=== PATIENT | male | born 2000 | race Caucasian/White ===

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

== ENCOUNTER → 2022-03-20 | Outpatient (CLI) | payer BC ==
--- NOTE | 2022-03-20 20:08 | XR ---
Number EXAMINATION TYPE: XR chest 2V DATE OF EXAM: 03/20/2022 COMPARISON: 02/10/2004 HISTORY: Chest pain TECHNIQUE: Frontal and lateral views of the chest are obtained. FINDINGS: There is no focal air space opacity. No evidence for pneumothorax. No pleural effusion. The cardiac silhouette size is within normal limits. The osseous structures are grossly intact. IMPRESSION: 1. No acute cardiopulmonary process.
== END | disposition home or self-care (01) ==
LOC: RADXRMAIN 16:47
PROVIDERS: ATTEND Family Medicine
DX: R06.00 Dyspnea, unspecified (principal)
CPT/HCPCS: 71046

== ENCOUNTER 2023-06-29 14:13 | Emergency (ER) | payer BC ==
--- NOTE | 2023-06-29 14:27 | ED ---
Nausea/Vomiting/Diarrhea HPI - General Source: patient, family, RN notes reviewed Mode of arrival: ambulatory Limitations: no limitations - History of Present Illness MD complaint: nausea, vomiting <Shraddha Roth - Last Filed: 06/29/23 14:23> <Ying Savage - Last Filed: 06/29/23 16:57> - General Chief complaint: Nausea/Vomiting/Diarrhea Stated complaint: covid symptoms Time Seen by Provider: 06/29/23 14:23 - History of Present Illness Initial comments: This is a 23 year old male who presents to the emergency department for nausea, vomiting, body aches, and coughing. Sx started 3 days ago. He is unable to keep anything down or control the coughing. 2 other people in his home tested positive for COVID, however he had a negative home test. (Shraddha Roth) 23-year-old male presenting with chief complaint of nausea and vomiting. Patient states symptoms have been ongoing for the last 3 days. He also admits to body aches and cough, which started on Friday. States that 2 other people in his home have had similar symptoms in tested positive for Covid. He is concerned because he is unable to keep anything down secondary to the vomiting. No shortness of breath, abdominal pain, fever, chills. (Ying Savage) - Related Data Previous Rx's Medication Instructions Recorded Amoxicillin 875 mg PO Q12HR #20 tablet 12/11/19 Ekxoadrc-Mxnccoqww-Yn Otic 2 drops BOTH EARS TID #1 bottle 12/11/19 [Cortisporin Otic Soln] Ondansetron Odt [Zofran Odt] 4 mg PO Q8HR PRN #20 tab 06/29/23 Allergies Allergy/AdvReac Type Severity Reaction Status Date / Time No Known Allergies Allergy Verified 11/24/22 16:09 Review of Systems ROS Other: All systems not noted in ROS Statement are negative. <Shraddha Roth - Last Filed: 06/29/23 14:23> ROS Other: All systems not noted in ROS Statement are negative. <Ying Savage - Last Filed: 06/29/23 16:57> ROS Statement: Those systems with pertinent positive or pertinent negative responses have been documented in the HPI. Past Medical History Past Medical History: No Reported History History of Any Multi-Drug Resistant Organisms: None Reported Past Surgical History: No Surgical Hx Reported Past Psychological History: Anxiety Smoking Status: Vaper Past Alcohol Use History: None Reported Past Drug Use History: None Reported <Shraddha Roth - Last Filed: 06/29/23 14:23> General Exam <Shraddha Roth - Last Filed: 06/29/23 14:23> Limitations: no limitations General appearance: alert, in no apparent distress Head exam: Present: atraumatic, normocephalic, normal inspection Eye exam: Present: normal appearance, EOMI ENT exam: Present: normal oropharynx, mucous membranes moist Neck exam: Present: normal inspection, full ROM Respiratory exam: Present: normal lung sounds bilaterally. Absent: respiratory distress, wheezes, rales, rhonchi, stridor Cardiovascular Exam: Present: regular rate, normal rhythm, normal heart sounds. Absent: systolic murmur, diastolic murmur, rubs, gallop, clicks Neurological exam: Present: alert, oriented X3 Psychiatric exam: Present: normal affect, normal mood Skin exam: Present: warm, dry, intact <Ying Savage - Last Filed: 06/29/23 16:57> - General Exam Comments Initial Comments: Visual Physical Exam Vital signs reviewed General: Well-appearing, nontoxic, no acute distress. Head: Normocephalic, atraumatic Eyes: PERRLA, EOMI ENT: Airway patent Chest: Nonlabored breathing Skin: No visual rash, normal skin tone Neuro: Alert and oriented 3 Musculoskeletal: No gross abnormalities I performed the QuickNote portion of this chart. Signed Shraddha Roth PA-C. (Shraddha Roth) Course Vital Signs 06/29/23 14:24 Temperature 98.5 F Pulse Rate 89 Respiratory 16 Rate Blood Pressure 156/100 O2 Sat by Pulse 96 Oximetry Medical Decision Making - Lab Data Result diagrams: 06/29/23 14:30 06/29/23 14:30 <Ying Savage - Last Filed: 06/29/23 16:57> - Medical Decision Making Was pt. sent in by a medical professional or institution (, [facility], [facility], urgent care, hospital, or care home...) When possible be specific @ -No Did you speak to anyone other than the patient for history (EMS, parent, family, police, friend...)? What history was obtained from this source @ -No Did you review nursing and triage notes (agree or disagree)? Why? @ -I reviewed and agree with nursing and triage notes Were old charts reviewed (outside hosp., previous admission, EMS record, old EKG, old radiological studies, urgent care reports/EKG's, care home records)? Report findings @ -No old charts were reviewed Differential Diagnosis (chest pain, altered mental status, abdominal pain women, abdominal pain men, vaginal bleeding, weakness, fever, dyspnea, syncope, heada margie, dizziness, GI bleed, back pain, seizure, CVA, palpatations, mental health, musculoskeletal)? @ -Differential includes gastroenteritis, Covid, pneumonia, this is not an all inclusive list EKG interpreted by me (3pts min.). @ -As above X-rays interpreted by me (1pt min.). @ -Chest x-ray negative for acute process CT interpreted by me (1pt min.). @ -None done U/S interpreted by me (1pt. min.). @ -None done What testing was considered but not performed or refused? (CT, X-rays, U/S, labs)? Why? @ -None What meds were considered but not given or refused? Why? @ -None Did you discuss the management of the patient with other professionals (professionals i.e. , PA, B[facility], lab, RT, psych nurse, social worker health services, vocational rehabilitation specialist, teacher, procurement officer, housing case manager)? Give summary @ -No Was smoking cessation discussed for >3mins.? @ -No Was critical care preformed (if so, how long)? @ -No Were there social determinants of health that impacted care today? How? (Homelessness, low income, unemployed, alcoholism, drug addiction, transportation, low edu. Level, literacy, decrease access to med. care, custodial, rehab)? @ -No Was there de-escalation of care discussed even if they declined (Discuss DNR or withdrawal of care, Hospice)? DNR status @ -No What co-morbidities impacted this encounter? (DM, HTN, Smoking, COPD, CAD, Cancer, CVA, ARF, Chemo, Hep., AIDS, mental health diagnosis, sleep apnea, morbid obesity)? @ -None Was patient admitted / discharged? Hospital course, mention meds given and route, prescriptions, significant lab abnormalities, going to OR and other pertinent info. @ -23-year-old male presenting with chief complaint of nausea vomiting and URI- like symptoms. Physical exam is conducted. WBC 3.2. Patient is positive for Covid. Chest x-ray shows no acute process. Patient is educated on today's findings and supportive management as well as quarantine guidelines regarding Covid diagnosis. He is prescribed Zofran. Follow-up with PCP. Report back to ER with any new or worsening symptoms. Discussed return parameters and answered all questions. Patient conveyed verbal understanding and agreed to the plan. I discussed this case in detail with my attending Dr. Campa Undiagnosed new problem with uncertain prognosis? @ -No Drug Therapy requiring intensive monitoring for toxicity (Heparin, Nitro, Insulin, Cardizem)? @ -No Were any procedures done? @ -No Diagnosis/symptom? @ -Covid Acute, or Chronic, or Acute on Chronic? @ -Acute Uncomplicated (without systemic symptoms) or Complicated (systemic symptoms)? @ -Uncomplicated Side effects of treatment? @ -No Exacerbation, Progression, or Severe Exacerbation? @ -No Poses a threat to life or bodily function? How? (Chest pain, USA, ID, pneumonia, PE, COPD, DKA, ARF, appy, cholecystitis, CVA, Diverticulitis, Homicidal, Suicidal, threat to staff... and all critical care pts) @ -No (Ying Savage) - Lab Data Lab Results 06/29/23 06/29/23 06/29/23 Range/Units 14:24 14:30 14:30 WBC 3.2 L (3.8-10.6) k/uL RBC 5.35 (4.30-5.90) m/uL Hgb 16.3 (13.0-17.5) gm/dL Hct 47.9 (39.0-53.0) % MCV 89.4 (80.0-100.0) fL MCH 30.5 (25.0-35.0) pg MCHC 34.1 (31.0-37.0) g/dL RDW 12.1 (11.5-15.5) % Plt Count 196 (150-450) k/uL MPV 7.4 Neutrophils % 60 % Lymphocytes % 28 % Monocytes % 6 % Eosinophils % 4 % Basophils % 0 % Neutrophils # 2.0 (1.3-7.7) k/uL Lymphocytes # 0.9 L (1.0-4.8) k/uL Monocytes # 0.2 (0-1.0) k/uL Eosinophils # 0.1 (0-0.7) k/uL Basophils # 0.0 (0-0.2) k/uL Sodium 138 (137-145) mmol/L Potassium 4.1 (3.5-5.1) mmol/L Chloride 98 (98-107) mmol/L Carbon Dioxide 27 (22-30) mmol/L Anion Gap 13 mmol/L BUN 13 (9-20) mg/dL Creatinine 1.27 H (0.66-1.25) mg/dL Est GFR (CKD-EPI)AfAm >90 (>60 ml/min/1.73 sqM) Est GFR (CKD-EPI)NonAf 80 (>60 ml/min/1.73 sqM) Glucose 111 H (74-99) mg/dL Calcium 9.3 (8.4-10.2) mg/dL Total Bilirubin 0.8 (0.2-1.3) mg/dL AST 42 (17-59) U/L ALT 47 (4-49) U/L Alkaline Phosphatase 66 (38-126) U/L Total Protein 8.0 (6.3-8.2) g/dL Albumin 4.7 (3.5-5.0) g/dL Influenza Type A (PCR) Not Detected (Not Detectd) Influenza Type B (PCR) Not Detected (Not Detectd) RSV (PCR) Not Detected (Not Detectd) SARS-CoV-2 (PCR) Detected A (Not Detectd) Disposition <Shraddha Roth - Last Filed: 06/29/23 14:23> Is patient prescribed a controlled substance at d/c from ED?: No Time of Disposition: 16:39 <Ying Savage - Last Filed: 06/29/23 16:57> Clinical Impression: COVID Disposition: HOME SELF-CARE Condition: Good Instructions (If sedation given, give patient instructions): Acute Nausea and Vomiting (ED), COVID-19 (Coronavirus Disease 2019) (ED) Additional Instructions: Follow-up with PCP. Report back to ER with any worsening symptoms. Take Motrin and Tylenol as needed for pain control. Take medication as prescribed. Prescriptions: Ondansetron Odt [Zofran Odt] 4 mg PO Q8HR PRN #20 tab PRN Reason: Nausea Referrals: Nishant Tate MD [Primary Care Provider] - 1-2 days
[2023-06-29 14:31] VITALS: BP 156/100; PULSE 89; RESP 16; TEMP 98.5
[2023-06-29 14:45] LABS: Basophils % (A) 0 %; Eosinophils # (A) 0.1 k/uL (0-0.7); Eosinophils % (A) 4 %; HCT 47.9 % (39.0-53.0); HGB 16.3 gm/dL (13.0-17.5); Lymphocytes # (A) 0.9 k/uL (1.0-4.8); Lymphocytes % (A) 28 %; MCH 30.5 pg (25.0-35.0); MCHC 34.1 g/dL (31.0-37.0); MCV 89.4 fL (80.0-100.0); Mean Platelet Volume 7.4; Monocytes # (A) 0.2 k/uL (0-1.0); Monocytes % (A) 6 %; Neutrophils % (A) 60 %; Platelet Count 196 k/uL (150-450); RBC 5.35 m/uL (4.30-5.90); RDW 12.1 % (11.5-15.5); WBC 3.2 k/uL (3.8-10.6)
--- NOTE | 2023-06-29 15:00 | XR ---
EXAMINATION TYPE: XR chest 2V DATE OF EXAM: 06/29/2023 COMPARISON: 11/24/2022 HISTORY: Cough TECHNIQUE: Frontal and lateral views of the chest are obtained. FINDINGS: There is no focal air space opacity, pleural effusion, or pneumothorax seen. The cardiac silhouette size is within normal limits. The osseous structures are intact. IMPRESSION: No acute cardiopulmonary process.
[2023-06-29 15:03] LABS: ALT 47 U/L (4-49); AST 42 U/L (17-59); African American GFR (CKD) >90 (>60 ml/min/1.73 sqM); Albumin 4.7 g/dL (3.5-5.0); Alkaline Phosphatase 66 U/L (38-126); Anion Gap 13 mmol/L; Blood Urea Nitrogen 13 mg/dL (9-20); Calcium 9.3 mg/dL (8.4-10.2); Carbon Dioxide 27 mmol/L (22-30); Chloride 98 mmol/L (98-107); Glucose 111 mg/dL (74-99); Non-African American GFR(CKD) 80 (>60 ml/min/1.73 sqM); Potassium 4.1 mmol/L (3.5-5.1); Sodium 138 mmol/L (137-145); Total Bilirubin 0.8 mg/dL (0.2-1.3)
[2023-06-29] MEDS ORDERED: ONDANSETRON 4 MG ODT STARTER PACK 2 TAB BTL PO STA (16:38)
== END 2023-06-29 16:51 | disposition home or self-care (01) ==
LOC: EC 14:13
DX: U07.1 COVID-19 (principal); F17.290 Nicotine dependence, other tobacco product, uncomplicated; Z86.59 Personal history of other mental and behavioral disorders
CPT/HCPCS: 36415; 71046; 80053; 85025; 87636; 99284

== ENCOUNTER → 2025-04-06 | Outpatient (CLI) | payer BC ==
[2025-04-06 10:54] LABS: Hepatitis A Antibody IgM Nonreactive (Nonreactive); Hepatitis B Surface Antigen Nonreactive (Nonreactive); Hepatitis C IgG Antibody Nonreactive (Nonreactive)
[2025-04-06 11:15] LABS: Rheumatoid Factor, Qnt 40 IU/mL (0-15); Uric Acid 5.9 mg/dL (3.7-8.7)
[2025-04-06 23:12] LABS: ACTH 12.50 pg/mL (0.00-45.99)
== END | disposition home or self-care (01) ==
LOC: LABWHC1 07:17
PROVIDERS: ATTEND Family Medicine
DX: M13.80 Other specified arthritis, unspecified site (principal); E55.9 Vitamin D deficiency, unspecified
CPT/HCPCS: 36415; 80074; 82024; 82103; 82306; 84550; 85652; 86038; 86140; 86431